=== PATIENT | female | born 1990 | race American Indian/Alaskan Native ===

== ENCOUNTER 2019-06-11 00:47 | Emergency (ER) | payer OTHER ==
[2019-06-11 00:54] VITALS: BP 147/99
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
== END 2019-06-11 03:45 | disposition home or self-care (01) ==
LOC: ED 00:47
DX: M25.512 Pain in left shoulder (principal); R51 Headache; V49.49XA Driver injured in collision with other motor vehicles in traffic accident, initial encounter; Y93.89 Activity, other specified; Y92.89 Other specified places as the place of occurrence of the external cause; Y99.8 Other external cause status
CPT/HCPCS: 99282